=== PATIENT | male | born 1940 | race Caucasian/White ===

== ENCOUNTER → 2017-02-08 | Day surgery (SDC) | payer OTHER ==
[~2017-02-08] MED LIST: ACYCLOVIR400 MG PO; AGGRENOX1 CAP PO; AMOXICILLIN-CL1 EACH PO; ASPIRIN81 M1 PO; FISH OIL300 MG PO; IMDUR-ER30 M1 PO; KLONOPIN0.5 MG PO; LOPRESSOR PO; METOPROLOL TART75 MG PO; MUCINEX DM ER1 EACH PO; NEXIUM PO; OXYCODONE-APAP1 EACH PO; PREDNISONE5 MG/5 M1 OU; PRINIVIL5 MG PO; SIMVASTATIN20 MG PO; VISKEN PO; ZESTRIL5 MG PO; ZOCOR20 MG PO; ZOVIRAX PO
--- NOTE | ~2017-02-08 | OR ---
Unit #: [id number] #: [id number] Patient: HERIBERTO RENDON [id number] [facility]. [place], [place] [address] [id number] O MR#: [id number] NAME: HERIBERTO RENDON ROOM: Date of Procedure: 02/08/2017 Admission Date: 02/08/2017 Surgeon: Greg Agudelo Jr., M.D. : 1940 Attending Physician: Greg Agudelo Jr., M.D. Primary Care Physician: Buzz Piper M.D. OPERATIVE REPORT INDICATION FOR PROCEDURE The patient is a 76-year-old white male, who has had a known past history for chronic gastroesophageal reflux disease and esophageal stenosis. He has had a previous Marcello fundoplication and had a dilatation with an EGD approximately a year ago, which was not very successful. He continues to have problems with severe dysphagia. He is brought in this time for EGD with esophageal dilatation. PREOPERATIVE DIAGNOSIS Recurrent esophageal stenosis. POSTOPERATIVE DIAGNOSES 2+ distal esophagitis, retained food particles in the distal esophagus, mild distal esophageal stenosis with an intact Marcello fundoplication wrap, and mild gastritis. ANESTHESIA MAC anesthesia. PROCEDURE PERFORMED Flexible fiberoptic esophagogastroduodenoscopy with antral biopsy for Helicobacter pylori and esophageal dilatation with 20 mm balloon dilator. DESCRIPTION OF PROCEDURE The patient was positioned in Chawla position with left side down. After being given MAC anesthesia, the Olympus XQ scope was passed through the proximal esophagus. The entire esophagus was examined. Proximal two-thirds appeared slightly dilated. In the distal esophagus, there was a linear ulceration along with some mild stenosis. There was a definite abnormal angulation of the esophagus off to the side of the stomach with almost an epiphrenic diverticulum being present with retained food particles. These particles were removed with suction device and irrigation. The scope was then advanced through the GE junction, where there was some mild stenosis and to the cardia, fundic, and antral region of the stomach, retroflexed back up to the area of the cardia. There was what appeared to be some recurrence of his hiatal hernia with a lax LES. The stomach distended well without evidence of rigidity. No evidence of any gastric ulcer disease. There were some mild gastritis changes in the distal stomach near the antrum. A biopsy was taken from the antrum for H pylori without significant bleeding. The scope was advanced through the pylorus and duodenal bulb and down to the second portion of the duodenum. The entire duodenal portion examination was within normal limits. The Unit #: [id number] #: [id number] Patient: HERIBERTO RENDON scope was slowly removed to the area of the fundus and an 18 to 20 mm balloon dilator was placed and brought up in the distal esophagus and used to dilate the distal esophagus up to 20 mm without evidence of any tears, perforation, or bleeding. There was slight oozing indicating reasonable dilatation. The scope was then slowly removed after reinspecting the area noting no evidence of any significant injury. The patient tolerated the procedure well and discharged in satisfactory condition. Dictated by... Greg Agudelo Jr., M.D. JMB/kristian TD: 02/08/2017 11:14 JOB #: [id number] OPERATIVE REPORT Page 1 of 1 X Greg Agudelo MD X PROCEDURE OPERATIVE NOTE
== END | disposition home or self-care (01) ==
LOC: COPS 05:54
DX: K22.2 Esophageal obstruction (principal); K22.10 Ulcer of esophagus without bleeding; K29.70 Gastritis, unspecified, without bleeding; K21.9 Gastro-esophageal reflux disease without esophagitis; I25.10 Atherosclerotic heart disease of native coronary artery without angina pectoris; N40.0 Benign prostatic hyperplasia without lower urinary tract symptoms; M19.90 Unspecified osteoarthritis, unspecified site; I10 Essential (primary) hypertension; E78.5 Hyperlipidemia, unspecified; G47.30 Sleep apnea, unspecified; Z86.73 Personal history of transient ischemic attack (TIA), and cerebral infarction without residual deficits; Z87.442 Personal history of urinary calculi; Z79.82 Long term (current) use of aspirin; Z88.1 Allergy status to other antibiotic agents; Z79.899 Other long term (current) drug therapy; Z95.1 Presence of aortocoronary bypass graft; Z90.49 Acquired absence of other specified parts of digestive tract; Z98.890 Other specified postprocedural states
CPT/HCPCS: 87077

== ENCOUNTER → 2017-02-15 | Outpatient (CLI) | payer OTHER ==
--- NOTE | ~2017-02-15 | CR265 ---
[facility] A Service of [facility] & [facility] RADIOLOGY TEXT RESULTS PATIENT: HERIBERTO LAW LOCATION: [facility] : [birth year] UNIT #: [id number] AGE: [address]: Greg Agudelo MD SEX: M ORDER DR: [id number] [facility] [address] [place], [place] [address] [id number] O MR#: [id number] Acc #: [id number] NAME: HERIBERTO LAW : 1940 SEX: M STUDY DATE/TIME: 02/15/2017 9:53 UNIT: [facility] ROOM: STUDY DESCRIPTION: CR Upper GI Series Wo KUB Attending Physician: Greg Agudelo Jr., M.D. Referring Physician: Greg Agudelo Jr., M.D. Ordering Physician: Greg Agudelo Jr., M.D. Primary Care Physician: Buzz Piper M.D. MEDICAL IMAGING REPORT This report is preliminary unless electronic signature is present EXAM Upper GI series. INDICATIONS Mr. Law is a 76-year-old man with a history of dysphagia with foods and liquids. He reports pain when eating as well as after eating. This is located within his mid abdomen. It has been present for 3 years. He did undergo endoscopy with esophageal dilatation about a week ago. He has had a prior hernia repair. TECHNIQUE Patient was administered thin barium to exclude any leak following dilatation. Subsequently, he was administered bicarbonate crystals and thick barium. Multiple fluoroscopic images were obtained. FINDINGS Patient had limited distension of the esophagus despite the use of the bicarbonate crystals. Patient has poor stripping of the esophagus, with multiple tertiary contractions noted. 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 From here, contrast passes through a narrowed channel into the proximal stomach, which is markedly abnormal in appearance with significant distortion noted. It is unclear to me from these images if this is postsurgical in nature. I question if perhaps it is some torsion at the operative site, although an underlying mass lesion cannot be excluded. Patient reports that during his endoscopy, he was noted to have suspected twisting of a portion of his stomach, and I think the upper GI findings today confirm that, as well. Contrast, however, does pass promptly into the remainder of the stomach, and from there into the small bowel. The remainder of the stomach, I think, is probably within normal limits, as is the proximal small bowel. Total fluoroscopy was 2.9 minutes and a total of 27 fluoroscopic images were obtained. [facility] A Service of [facility] RADIOLOGY TEXT RESULTS PATIENT: HERIBERTO LAW LOCATION: [facility] : 42 UNIT #: [id number] AGE: [address]: Greg Agudelo MD SEX: M ORDER DR: Of note, patient was administered a barium tablet which failed to pass after several minutes, despite the administration of some water. The tablet appeared to be caught in the area of narrowing below the area of epiphrenic diverticulum. IMPRESSION 1. Markedly abnormal study. 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 Distal to this, there is a narrowed channel extending into the stomach, which is markedly distorted proximally. Patient reports on endoscopy last week, he was noted to have twisting of the stomach and I think these images certainly confirm that, although contrast passes promptly into the small bowel. Prior CT in October 2015 showed the outpouching of the distal esophagus as well as some of the narrowed channel, but no definite twisting of the proximal stomach. Potentially, CT could be reconsidered for some additional anatomic information. 2. This patient's esophageal motility is very abnormal. There is very poor stripping of the esophagus and multiple tertiary contractions were noted. 3. Patient was administered a barium tablet which failed to pass through the area of stricturing between the esophagus and proximal stomach. Dictated by... Donya Escobedo M.D. THIS IS AN ELECTRONICALLY VERIFIED REPORT Donya Escobedo M.D. at 02/16/2017 5:04 PM AFF/psc TD: 02/16/2017 14:18 JOB #: [id number] MEDICAL IMAGING REPORT Page 1 of 1 COPY
== END | disposition home or self-care (01) ==
LOC: CRAD 09:13
DX: K22.2 Esophageal obstruction (principal); K21.9 Gastro-esophageal reflux disease without esophagitis; R93.3 Abnormal findings on diagnostic imaging of other parts of digestive tract
CPT/HCPCS: 74240